=== PATIENT | female | born 1995 | race Caucasian/White ===

== ENCOUNTER 2023-09-01 22:14 | Emergency (ER) | payer OTHER, SELFPAY ==
[2023-09-01 22:19] VITALS: BP 138/90; PULSE 70; RESP 16; TEMP 36.8; O2SAT 100
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
[2023-09-01 22:28] VITALS: BP 138/90; PULSE 70; RESP 16; TEMP 36.8; O2SAT 100
--- NOTE | 2023-09-01 22:30 | DI.RAD_ITS ---
Exam(s) XR HIP LT COMPLETE AP PELVIS EXAM: XR HIP LT COMPLETE AP PELVIS CLINICAL HISTORY: hip/groin pain. TECHNIQUE: 2D digital imaging was performed. COMPARISON: No exams were available for comparison FINDINGS: Two views. No evidence of pelvic nor hip fracture. No hip joint space narrowing. Additional lateral view of th e left hip reveals no significant findings. Bone density normal. No osseous lesions. IMPRESSION: No significant radiographic findings in the bones of the pelvis and hips. DATA REPOSITORY: RADIATION DOSE DELIVERED:
--- NOTE | 2023-09-01 23:48 | DI.VRAD_ITS ---
PROCEDURE INFORMATION: Exam: XR Left Hip Exam date and time: 09/01/2023 11:03 PM Age: 28 years old Clinical indication: Hip pain; Left hip TECHNIQUE: Imaging protocol: Radiologic exam of the left hip. Views: 2 or 3 views hip with pelvis when performed. COMPARISON: No relevant prior studies available. FINDINGS: Bones/joints: Osseous alignment is normal. No acute fracture. No significant arthritic change Soft tissues: Unremarkable. IMPRESSION: Negative left hip Dictated and Authenticated by: Vish Ruiz MD. Ordering:JERRI Verdugo MD
== END 2023-09-02 00:05 | disposition home or self-care (01) ==
PROVIDERS: Emergency Provider Emergency Medicine; PCP Nurse Practitioner
DX: R10.9 Unspecified abdominal pain (principal)
CPT/HCPCS: 99283; 73502

== ENCOUNTER 2024-03-04 01:17 | Outpatient (CLI) | payer OTHER, SELFPAY ==
--- NOTE | 2024-03-04 | DI.MRI_ITS ---
Exam(s) MR LOWER JOINT LT WO EXAM: MR LOWER JOINT LT WO CLINICAL HISTORY: LOWER ABD PAIN R10.30 ADDUCTOR STRAIN TECHNIQUE: Multiplanar multisequence MRI of the hip was performed. COMPARISON: No exams were available for comparison FINDINGS: MARROW:There is no evidence of fracture, bone contusion, nor avascular necrosis. There are no signif icant osseous lesions.There is no significant osseous excrescence at the femoral head-neck junction t o suggest the presence of cam-type LUKE. HIP JOINT SPACE: There is no significant size hip joint effusion. There is no abnormal synovial thic kening nor loose intra-articular bodies. No obvious chondral defects.There is no hypertrophy of the ligamentum teres nor signal abnormality at the fovea centralis nor elsewhere in the femoral head. Th ere are no degenerative subarticular cysts on either side of the joint.. BURSAE: There is no evidence of trochanteric bursitis. There is no evidence of iliopsoas bursitis. LABRUM: There is no evidence of obvious labral tear nor evidence of paralabral cyst. TENDONS: There is very mild signal abnormality adjacent to the outer aspect of the greater trochanter in the region of the tendon of the gluteus medius insertion. Possibly mild tendinitis. This is onl y evident on the smaller field of view coronal sequence. There is no signal abnormality evident within the other muscle groups around the hip, including the a dductor group in the medial compartment, as per request. There is no signal abnormality in the adduc tor kathy as well as the adductor longus and brevis. Also no evidence of abnormal edema nor fluid s ignal within the intermuscular planes. ISCHIAL TUBEROSITY/HAMSTRING: There is no abnormal intraosseous signal in the ipsilateral ischial tub erosity nor tear of the common hamstrings tendon attachment site at this level. OTHER: There is no abnormal intramuscular signal within the quadratus femoris to suggest the presence of impingement syndrome at this level. IMPRESSION: 1. Minimal findings. No abnormal findings in the adductor group. Minimal increased signal noted at the insertional aspect of the gluteus medius on the greater trochanter. 2. No abnormal marrow signal to suggest stress fracture, degenerative changes, nor avascular necrosis . No joint effusion. 3. No evidence of obvious labral tear on this non arthrogram study. There is no evidence of paralabr al cyst. DATA REPOSITORY:
--- OUTSIDE RECORDS SUMMARY | 2024-03-04 01:26 | XMS_ITS | Encounter Summary ---
Author Organization [facility] Address [address] [place] [address] Care Team Providers Care Supervisor Dumping Name Role Phone Carolynn Claudio MD Primary Care Provider [phone] Reason for Visit * Reason Comments Cyst Encounter Details Date Type Department Care Team ([facility] st Contact Info) Description 05/01/2019 1:22 PM EST - 05/01/2019 2:30 PM EST Emergency [facility] Emergency Department [address] [place] [phone] Akanksha Ricci MD [address] [place] [phone] Discharge Disposition: Home or Self Care Social History Tobacco Use Types Packs/Day Years Used Date Smoking Tobacco: Never Smokeless Tobacco: Never Alcohol Use Standard Drinks/Week Comments Yes 0 (1 standard drink = 0.6 oz pur e alcohol) Substance Use Types Use/Week Comments Never Comments Unknown Sex and Gender Information Value Date Recorded Sex Assigned at Not on file Legal Sex Female 11:00 AM EDT Gender Identity Not on file Sexual Orientation Not on file documented as of this encounter Last Filed Vital Signs Vital Sign Reading Time Taken Comments Blood Pressure 128/88 05/01/2019 12:55 PM EST Pulse 71 05/01/2019 12:55 PM EST Temperature 37.4 ??C (99.3 ??F) 05/01/2019 12:[address] Respiratory Rate 16 05/01/2019 12:55 PM EST Oxygen Saturation 100% 05/01/2019 12:55 PM EST Inhaled Oxygen Concentration 100% 05/01/2019 1 2:55 PM EST Weight 63.5 kg (140 lb) 05/01/2019 12:55 PM EST Height 160 cm (5' 3) 05/01/2019 12:55 PM EST Body Mass Index 24.8 05/01/2019 12:55 PM EST documented in this encounter Discharge Instructions * Discharge Instructions* Akanksha Ricci MD - 05/01/2019 2:19 PM EST Your abscess is already started to drain spontaneously before you came there is no fluid collectionseen that we need to drain today You will be started on antibiotic called doxycycline 100 mg twice a day for a week, wash your skin with dilute Hibiclens which you can buy at the drugstore for the next week It is also called chlorhexidine documented in this encounter Medications at Time of Discharge doxycycline 100 MG Cap Take 1 Cap (100 mg total) by mouth 2 times daily for 7 days 14 Cap 05/01/2019 05/08/2019 documented as of this encounter ED Notes * Akanksha Ricci MD - 05/01/2019 2:30 PM EST History Chief Complaint Patient presents with ??? Cyst Chief Complaint: Question pilonidal cyst HPI This is a 23 y.o. female who presents with lump and bulging cyst near her rectum which she has feltover the last 2 days and noticed some bleeding from it today. She was told by her PCP that she has a pilonidal cyst but has never required incision and drainage. She denies fever or chills. She denies any previous history of MRSA. She is otherwise in excellent health. History reviewed. No pertinent past medical history. History reviewed. No pertinent surgical history. No family history on file. Social History Tobacco Use ??? Smoking status: Never Smoker ??? Smokeless tobacco: Never Used Substance Use Topics ??? Alcohol use: Yes ??? Drug use: Never Review of Systems Constitutional: Negative for chills and fever. Skin: Positive for wound. Physical Exam BP 128/88 (Patient Position: Sitting) Pulse 71 Temp 37.4 ??C (99.3 ??F) (Tympanic) Resp 16 Ht 1.6 m (5' 3) Wt 63.5 kg (140 lb) SpO2 100% BMI 24.80 kg/m?? Physical Exam Vitals signs and nursing note reviewed. Constitutional: Comments: Awake and alert no acute distress HENT: Head: Normocephalic. Mouth/Throat: Mouth: Mucous membranes are moist. Skin: Comments: Examination of the perirectal area reveals a wound at about 2:00 with some dried blood the area was tender but not acutely fluctuant there was a small amount of serosanguineous area draining from this area from a open wound measuring about 3 mm, there is no evidence of pilonidal cyst or any lesions or abscesses in the midline Neurological: Mental Status: She is alert. Procedures Portal bedside ultrasound did not show any evidence of a fluid collection at the site of this draining wound Pertinent Diagnostic study results include: MDM (ED Course and Disposition) ASSESMENT and PLAN This is a 23 y.o. female who presents with perirectal abscess which is spontaneously drained there is no obvious fluctuance or fluid collection at this time. Patient will be started on 7-day course of doxycycline. I did discuss with her that this possibly could represent a recurrent MRSA infection as she has had this before. She will shower with Hibiclens for the next week Encounter Diagnosis Name Primary? Perirectal abscess Yes MDM: : Refer to text in Assessment and Plan ED CRITICAL CARE: Critical Care: No Akanksha Ricci MD 05/01/19 1950 * Paulette Leos RN - 05/01/2019 12:54 PM EST Pt c/o lump at anus Has had in past no surgery 5 days ago started getting bigger Today is bleeding . documented in this encounter Plan of Treatment Not on file documented as of this encounter Visit Diagnoses Diagnosis Perirectal abscess- Primary Abscess of anal and rectal regions documented in this encounter Care Teams Supervisor Dumping Relationship Specialty Start Date End Date Carolynn Claudio MD [address] [place] [id number] PCP - General Internal Medicine 10/20/18 documented as of this encounter
--- OUTSIDE RECORDS SUMMARY | 2024-03-04 01:26 | XMS_ITS | Encounter Summary ---
Author Organization [facility] Address [address] [place] [id number] Care Team Providers Care Button Cutting Machine Operator Name Role Phone Unknown, Provider Primary Care Provider Radha martines Encounter Details Date Type Department Care Team (Late st Contact Info) Description 03/28/2009 Orders Only [facility] Laboratory Services - [facility] ([facility]) [address] [place] [address], [place] [id number] Adrien Sweeney MD [address] [place] [id number] Social History Tobacco Use Types Packs/Day Years Used Date Smoking Tobacco: Never Assessed Sex and Gender Information Value Date Recorded Sex Assigned at Not on file Gender Identity Not on file Sexual Orientation Not on file documented as of this encounter Plan of Treatment Not on file documented as of this encounter Procedures Procedure Name Priority Date/Time Associated Diagnosis Comments SURGICAL PATHOLOGY Routine 03/28/2009 0:00 EST documented in this encounter Results * SURGICAL PATHOLOGY (03/28/2009 0:00 EST) Pathology Report: SURGICAL PATHOLOGY REPORT ? Reports generated via electronic interface contain original data; ? however they are lacking the format of the original report. ? Caution should be taken when reading/interpreti ng unformatted reports. ? Name: ? LONDON, DOREEN M ? Accession #: ? [id number] ? : ? 1995 (Age: 13) ??F ? Collect Date: ? 03/28/2009 ? Location: ? [facility] ? Receive Date: ? 03/28/2009 ? Provider: ADRIEN ARGENIS MD ? Copy to: YADIRA BC MD ? Final Pathologic Diagnosis: ? A. ?Turbinate, right, excisional biopsy: ? 1. ?Turbinate tissue with chronic inflammation and reactive changes. ? B. ?? Turbinate, left, excisional biopsy: ? 1. ?Turbinate tissue with chronic inflammation and reactive changes. ? Document reviewed and electronically signed by: ? Taisha Mendieta, MD ? Report ??Date: 04/03/2009 09:51 ? By the signature above, the attending physician certifies that he/she has ? personally conducted a gross and/or microscopic examination of the described ? specimens and rendered or confirmed the above diagnosis. ? Specimen(s) Received: ? A. ?Right turbinate ? B. ? Left turbinate ? Clinical History: ? Obstructive bilat inf turb hypertrophy ? Gross Description: ? Received in formalin labelled London, Doreen and right turbinate is a ?? meadows-pink, smooth to wrinkled, unoriented, 3.0 x 0.6 x 0.5 cm portion of mucosa ?? with underlying georges-white, cartilaginous material. ??No definitive nodule is ? identified. ??The specimen is longitudinally bisected and entirely submitted as ?? (A). ? Received in formalin labelled London, Doreen and left turbinate is a ? meadows-pink, ovoid, unoriented portion of mucosa measuring 2.7 x 0.6 x 0.5 cm and ?? has underlying, georges-white, cartilaginous material. ??No discrete nodule is ? present. ??The specimen is longitudinally bisected and entirely submitted as (B). ([facility])/[facility] ? End of Report ? [facility] 03/28/2009 03/28/2009 19: 49 EST Adrien Lillian MD PATHOLOGY ORDERABLES [facility] [address] [place] [id number] documented in this encounter Visit Diagnoses Not on filedocumented in this encounter Care Teams Button Cutting Machine Operator Relationship Specialty Start Date End Date Unknown, Provider, PCP - General 03/28/09 documented as of this encounter
--- OUTSIDE RECORDS SUMMARY | 2024-03-04 01:26 | XMS_ITS | Encounter Summary ---
Author Organization [facility] Address [facility] [address] [place] [address] Care Team Providers Care Head Porter Baggage Name Role Phone Roxanne Membreno MD Primary Care Provider [phone] Reason for Visit * Reason Onset Date Comments Medication Refill 03/04/2023 Encounter Details Date Type Department Care Team (Late st Contact Info) Description 03/04/2023 Refill Dermatology at [facility] [address] [place] [phone] Stuart Hickman MD [facility] [address] [place] [address] Hidradenitis suppurativa Social History Tobacco Use Types Packs/Day Years Used Date Smoking Tobacco: Never Assessed Sex and Gender Information Value Date Recorded Sex Assigned at Not on file Gender Identity Not on file Sexual Orientation Not on file documented as of this encounter Miscellaneous Notes * Telephone Encounter - Brittani Casillas LPN - 03/04/2023 1:08 PM EDT Pharmacy change documented in this encounter Plan of Treatment Not on file documented as of this encounter Visit Diagnoses Diagnosis Hidradenitis suppurativa Hidradenitis documented in this encounter Care Teams Head Porter Baggage Relationship Specialty Start Date End Date Roxanne Membreno MD [address] [place] [phone] PCP - General Family Medicine 03/05/21 documented as of this encounter
--- OUTSIDE RECORDS SUMMARY | 2024-03-04 01:26 | XMS_ITS | Clinical Summary ---
Author Organization [facility] Address [address] [place] [address] Care Team Providers Care Jewelry Store Manager Name Role Phone Carolynn Claudio MD Primary Care Provider [phone] Allergies No known active allergies Medications No known medications Social History Tobacco Use Types Packs/Day Years [...] on file Sexual Orientation Not on file Last Filed Vital Signs Vital Sign Reading [...] Mass Index 24.8 05/01/2019 12:55 PM EST Plan of Treatment Not on file Care Teams Jewelry Store Manager Relationship Specialty Start Date End Date Carolynn Claudio MD [address] [place] [address] PCP - General Internal Medicine 10/20/18
--- OUTSIDE RECORDS SUMMARY | 2024-03-04 01:26 | XMS_ITS | Clinical Summary ---
Author Organization [facility] Address [facility] [place] [address] Care Team Providers Care Electrician Crane Maintenance Name Role Phone Roxanne Membreno MD Primary Care Provider [phone] Allergies No known active allergies Medications Medication Sig Dispensed Refills Start Date End Date Status norgestimate-ethinyl estradiol (TRI-SPRINTEC, 28,) 0.18/0.215/0.25 mg-35 mcg (28) tablet 10/22/2009 Active CHOLECALCIFEROL, VITAMIN D3, (VITAMIN D-3 ORAL) 10/22/2009 Active multivitamin (THERAGRAN) tablet 10/22/2009 Active escitalopram (LEXAPRO) 10 mg tablet 10/22/2009 Active clindamycin (CLINDAGEL) 1 % Gel APPLY TOPICALLY TO THE AFFECTED AREA TWICE DAILY 01/08/2021 Active Kurvelo, 28, 0.15-0.03 mg Tablet TAKE 1 TABLET BY MOUTH EVERY DAY 02/22/2021 Active traZODone (Desyrel) 50 mg Tablet TAKE 1 TO 2 TABLETS BY MOUTH AT BEDTIME 02/28/2021 Active zolpidem (Ambien) 5 mg Tablet TAKE 1 TABLET BY MOUTH AT BEDTIME NEEDED 02/28/2021 Active spironolactone (Aldactone) 50 mg tabletIndications:Hi dradenitis suppurativa Take 1 tablet by mouth daily. Ok to increase to 2 pills daily if tolerated 90 tablet 3 03/04/2023 Active Active Problems No known active problems Social History Tobacco Use Types Packs/Day Years Used Date Smoking Tobacco: Never Assessed Sex and Gender Information Value Date Recorded Sex Assigned at Not on file Gender Identity Not on file Sexual Orientation Not on file Plan of Treatment Health Maintenance Due Date Last Done Comments HIV screen 07/21/2011 Hepatitis C Screening 07/21/2011 Hepatitis B vaccine (0-59 yrs) (1) 2012 Tetanus/Diphtheria/Pertussis Vaccines (1 - Tdap) 07/20 HPV test 07/21/2023 PAP Smear 07/21/2023 Covid-19 Vaccine (1 - season) 2024 Influenza (Flu) vaccine (1 o f 1 - Influenza standard series) 01/03/2024 Care Teams Electrician Crane Maintenance Relationship Specialty Start Date End Date Roxanne Membreno MD [address] [place] [phone] PCP - General Family Medicine 03/05/21
--- OUTSIDE RECORDS SUMMARY | 2024-03-04 01:26 | XMS_ITS | Encounter Summary ---
[facility] Organization [facility] Address [facility] [place] [address] Care Team Providers Care Trolley Worker Name Role Phone Rxoanne Membreno MD Primary Care Provider [phone] Reason for Visit * Consultation (Routine) - Closed Specialty Diagnoses / Procedures Referred By Contac t Referred To Contact Dermatology Diagnoses Hidradenitis suppurativa Procedures Hidradenitis suppurativa Pascual Reyna MD [address] [place] [address] [facility] Dermatology [address] [place] [address] Referral ID Status Reason Start Date Expiration Date Visits Re quested Visits Authorized [id number] Closed 01/22/2021 01/22/2022 1 1 Encounter Details Date Type Department Care Team (Late st Contact Info) Description 03/05/2021 1:40 PM EDT Office Visit Dermatology at [facility] [address] [place] [address] Veronica Campbell MD [facility] [address] [place] [address] Hidradenitis suppurativa Social History Tobacco Use Types Packs/Day Years Used Date Smoking Tobacco: Never Assessed Sex and Gender Information Value Date Recorded Sex Assigned at Not on file Gender Identity Not on file Sexual Orientation Not on file documented as of this encounter Progress Notes * Veronica Campbell - 03/05/2021 1:40 PM EDT Images from the original note were not included. DEPARTMENT OF DERMATOLOGY Medical Dermatology Clinic Note Provider: Veronica Campbell MD Patient's preferred name Doreen Preferred contact method for results [x]Phone: Cell []myD-H []Letter Detailed phone message OK? Yes Are there any other people with whom we may discuss your care? Amy London (mother) Past Medical History Date, location, treatment Melanoma N Dysplastic nevi N SCC N BCC N AKs N Other relevant past medical history N Family History Details Melanoma N NMSC N Other relevant family history N Social History Occupation: Clinical Physical Therapy Aid Hobbies: [employer], [employer] Other: single Pre-Procedure Questions Details Allergy to lidocaine, epinephrine, Dermabond, chlorhexidine, or adhesives N Bleeding disorder or blood thinners N Implanted devices (Pacemaker, defibrillator, deep brain stimulator, cochlear implant) N History of Present Illness: Doreen London is a 25 y.o. Patient is referred to the clinic at the request of Pascual Reyna for HS, she was given clindamycin topical and doxycyline , she notes that she had to stop the doxycyline because of GI side effects, she continues to use the clindamycin topical after showering, it has been coming and going since Spring 2018, they have been mostly in the genital area, she would go to the ER every time and they gave her oral antibiotics which helped, she uses Dial or Dove sensitive skin liquid soap in the shower, she tends to break out more when sheis stressed and worsens with sweat, he most recent lesion was on the left labia, but she does not have anything active today. - she notes that she has been breaking out with hives on her skin,she stopped taking ZZquil to fallasleep and notes that now she is getting hives at night, she has not tried to treat with anything as she is trying to stay away from anything related to benadryl Review of Systems: General: Feeling well. Skin: No other skin concerns. Medications: Reviewed in eD-H Allergies: Reviewed in eD-H Skin Examination: Focused skin examination of the groin, including genitals, axillae, back was normal with the exception of the findings below. 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 It is thought that follicular occlusion leads to trapping offollicular contents, rupture, and inflammation of the dermis, with bacterial superinfection in somecases. - discussed treatment options with patient including topical antibiotics, antibiotic washes, spironolactone, oral antibiotics Plan: - Instruct patients to avoid tight-fitting clothing and excessive friction to the involved areas. - continue Rx: Clindamycin gel 1% BID to affected area - start OTC Benzoyl Peroxide wash - apply to the affected areas and let sit 3-5 minutes prior to rinsing - start Rx: Spironolactone start at 50mg daily; ok to increase to 100mg daily if tolerated -Common side effects discussed with pt including menstrual irregularities, breast tenderness, minorgastrointestinal symptoms & orthostatic hypotension. No personal hx of Breast Cancer. Taking OCPs - recommended that she call and return to clinic when flaring for further evaluation Other: ??? N/A RTC: 3 months for follow up of HS []Note routed to workers compensation legal secretary []Recall placed in scheduling system [x]Appointment scheduled at checkout Scribe attestation: Kasia Montague [facility] has performed the documentation for this encounter in the presence of and acting as a scribe for Veronica Campbell MD. I performed the above scribed service and agree with the accuracy of the documentation in this encounter. Reviewed and signed by: Veronica Campbell MD Dermatology [facility] Patient seen and evaluated with staff assistant health educator: Alize Iglesias MD Department of Dermatology [facility] * Alize Iglesias MD - 03/05/2021 1:40 PM EDT I directly supervised Dr. Campbell during this office visit. Dr. Campbell presented the history and physical exam to me. I then saw and examined this patient with Dr. Campbell . We reviewed the history andpertinent details and I confirmed the physical findings. I agree with the details of the history and physical exam as documented in Dr. Campbells note. ALIZE IGLESIAS MD Staff Physician documented in this encounter Plan of Treatment Not on file documented as of this encounter Visit Diagnoses Diagnosis Hidradenitis suppurativa Hidradenitis documented in this encounter Care Teams Trolley Worker Relationship Specialty Start Date End Date Roxanne Membreno MD [address] [place] [phone] PCP - General Family Medicine 03/05/21 documented as of this encounter
--- OUTSIDE RECORDS SUMMARY | 2024-03-04 01:26 | XMS_ITS | Encounter Summary ---
Author Organization [facility] [place] [address] Care Team Providers Care Financial Aids Officer Name Role Phone Roxanne Membreno MD Primary Care Provider [phone] Encounter Details Date Type Department Care Team (Latest Contact Info) Description 06/23/2022 4:20 PM EST TH Visit (TeleHealth) Dermatology at [facility] [address] [place] [address] Stuart Hickman MD [facility] DR [address] [place] [address] Hidradenitis suppurativa Social History Tobacco Use Types Packs/Day Years Used Date Smoking Tobacco: Never Assessed Sex and Gender Information Value Date Recorded Sex Assigned at Not on file Gender Identity Not on file Sexual Orientation Not on file documented as of this encounter Progress Notes * Stuart Hickman MD - 06/23/2022 4:20 PM EST Images from the original note were not included. DEPARTMENT OF DERMATOLOGY Medical Dermatology Clinic Provider: Stuart Hickman MD Patient's preferred name Doreen Preferred contact method for results [x]??Phone: Cell??[]??myD-H []??Letter Detailed phone message OK? Yes Are there any other people with whom we may discuss your care? Amy London (mother) ?? 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 Pre-Procedure Questions Details Allergy to lidocaine, epinephrine, Dermabond, chlorhexidine, or adhesives N Bleeding disorder or blood thinners N Implanted devices (Pacemaker, defibrillator, deep brain stimulator, cochlear implant) N History of Present Illness: Doreen London is a 26 y.o. Patient returns to clinic today for a follow up of HS. She states that her skin is doing well. She states that she is continuing with Rx Spironolactone and OTC Hibiclen, she stats that she hasn't used Rx Clindamycin gel in a while. She statesthat she is continuing Rx Spironolactone 50mg daily. She states that she is continuing to do well, she denies having any questions or concerns. Last visit at Dermatology: 12/25/2021 Last visit with this provider: Visit date not found Medications: Reviewed in eD-H Allergies: Reviewed in eD-H Skin Examination: TeleHealth examination: Skin exam of the face was performed via TeleHealth. Patient is aware that assessment may be limited by the TeleHealth video resolution. Assessment/Plan #??Hidradenitis??Suppurativa, Mild??- Clear today per pt. No recent flares - patient d/c Clindamycin??gel??1%??as she did not feel she needed it. No flares since d/c. May consider restarting in future if needed - Continue OTC Hibiclens wash??- apply to the affected areas and let sit 3-5 minutes prior to rinsing - Continue??Rx: Spironolactone start at 50mg daily;??ok to increase to 100mg daily if tolerated. Recommend if increasing, take prior to bedtime due to potential side effects of dizziness, as pt did not tolerate dose increase during her waking hours - Common side effects discussed with pt including menstrual irregularities, breast tenderness, minor gastrointestinal symptoms & orthostatic hypotension.??No personal hx of Breast Cancer. - Pt on OCPs, continue Other: ??? N/A RTC: 1 yr for med refill for HS or PRN []Note routed to career technology teacher [x]Recall placed in scheduling system []Appointment scheduled at checkout Scribe attestation: Bere Aparicio [facility] has performed the documentation for this encounter in thepresence of and acting as a scribe for Stuart Hickman MD. I performed the above scribed service and agree with the accuracy of the documentation in this encounter. Reviewed and signed by: Stuart Hickman MD Dermatology [facility] staff airport operations manager: Taylor Vitale MD Dermatology [facility] * Taylor Vitale MD - 06/23/2022 4:20 PM EST I was the attending physician supervising the resident in the above care. For the purposes of billing, the resident provided the care. documented in this encounter Plan of Treatment Not on file documented as of this encounter Visit Diagnoses Diagnosis Hidradenitis suppurativa Hidradenitis documented in this encounter Care Teams Financial Aids Officer Relationship Specialty Start Date End Date Roxanne Membreno MD [address] [place] [phone] PCP - General Family Medicine 03/05/21 documented as of this encounter
--- OUTSIDE RECORDS SUMMARY | 2024-03-04 01:26 | XMS_ITS | Referral Summary ---
Author Organization [facility] Address [address] [place] [address] Care Team Providers Care Liquid Yeast Supervisor Name Role Phone Carolynn Claudio MD Primary Care Provider [phone] Allergies No known active allergies Medications No [...] of Treatment Not on file Care Teams Liquid Yeast Supervisor Relationship Specialty Start Date End Date Carolynn Claudio MD [address] [place] [address] PCP - General Internal Medicine 10/20/18
--- OUTSIDE RECORDS SUMMARY | 2024-03-04 01:26 | XMS_ITS | Clinical Summary ---
Author Organization [facility] Address [address] [place] [address] Care Team Providers Care Lead Manufacturing Technician Name Role Phone Unknown, Provider Primary Care Provider Unava ilable Social History Tobacco Use Types Packs/Day Years Used Date Smoking Tobacco: Never Assessed Sex and Gender Information Value Date Recorded Sex Assigned at Not on file Gender Identity Not on file Sexual Orientation Not on file Plan of Treatment Health Maintenance Due Date Last Done Comments Hepatitis C Screen 1993 Hepatitis B Vaccine (1 of 3 - 19+ 3-dose series) 07/20 COVID-19 Vaccine ( season) 2023 Care Teams Lead Manufacturing Technician Relationship Specialty Start Date End Date Unknown, Provider, PCP - General 03/28/09
--- OUTSIDE RECORDS SUMMARY | 2024-03-04 01:26 | XMS_ITS | Encounter Summary ---
Author Organization [facility] [place] [address] Care Team Providers Care Faceter Name Role Phone Roxanne Membreno MD Primary Care Provider [phone] Encounter Details Date Type Department Care Team (Late st Contact Info) Description 12/25/2021 8:00 AM EDT TH Visit (TeleHealth) Dermatology at [facility] [address] [place] [address] Lorenza Urias MD [facility] DR [address] [place] [address] Hidradenitis suppurativa Social History Tobacco Use Types Packs/Day Years Used Date Smoking Tobacco: Never Assessed Sex and Gender Information Value Date Recorded Sex Assigned at Not on file Gender Identity Not on file Sexual Orientation Not on file documented as of this encounter Progress Notes * Lorenza Urias MD - 12/25/2021 8:00 AM EDT Images from the original note were not included. DEPARTMENT OF DERMATOLOGY Medical Dermatology Clinic Provider: Lorenza Urias MD Patient's preferred name Doreen Preferred contact method for results [x]?Phone: Cell []?myD-H []?Letter Detailed phone message OK? Yes Are there any other people with whom we may discuss your care? Amy London (mother) ?? 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 Pre-Procedure Questions Details Allergy to lidocaine, epinephrine, Dermabond, chlorhexidine, or adhesives N Bleeding disorder or blood thinners N Implanted devices (Pacemaker, defibrillator, deep brain stimulator, cochlear implant) N History of Present Illness: Doreen London is a 26 y.o. year old. Patient returns to clinic today for evaluation of acne & HS follow up. Patient reports that her HS has been good. Patient also reports she has felt a ouple flare ups come on but was tristan to us topical Rx Clindamycin that helped keep it at bay. Patient report she did try to up the dose of Rx Spirolactone but started to not feelgood so patient has continued at 50mg. Last visit at [facility] Derm: 06/03/2021 Last visit with this provider: 06/03/2021 Medications: Reviewed in eD-H Allergies: Reviewed in eD-H Skin Examination: Deferred due to telehealth visit Assessment/Plan # Hidradenitis Suppurativa, Mild - Clear today per pt - continue Rx: Clindamycin gel 1% BID to affected area - Continue OTC Hibiclens wash - apply to the affected areas and let sit 3-5 minutes prior to rinsing - Continue Rx: Spironolactone start at 50mg daily; ok to increase to 100mg daily if tolerated. Recommend if increasing, take prior to bedtime due to potential side effects of dizziness, as pt did nottolerate dose increase during her waking hours -Common side effects discussed with pt including menstrual irregularities, breast tenderness, minorgastrointestinal symptoms & orthostatic hypotension. No personal hx of Breast Cancer. - Pt on OCPs RTC: 6 months for HS f/u [x]Note routed to board of education secretary []Recall has been placed in scheduling system []Appointment scheduled at checkout Scribe attestation: Note initiated by Keiko GONZALEZ I performed the above scribed service and agree with the accuracy of the documentation in this encounter. Reviewed and signed by: Lorenza Urias MD Dermatology [facility] Staff milieu technician: Nathalie Mckeon MD Dermatology [facility] * Nathalie Mckeon MD - 12/25/2021 8:00 AM EDT I was the supervising physician working with dermatology resident Dr. Urias in the dermatology clinic during this patient visit. The level of resident supervision for this patient visit was indirect supervision with direct supervision immediately available. (definition: [facility] GME Policy Statementon Graduate Medical Education, Supervision of Graduate Medical Trainees) I was immediately available to Dr. Urias for questions and discussion regarding this visit. I have reviewed the encounter note details and level of service. NATHALIE MCKEON MD Staff Physician documented in this encounter Plan of Treatment Not on file documented as of this encounter Visit Diagnoses Diagnosis Hidradenitis suppurativa Hidradenitis documented in this encounter Care Teams Faceter Relationship Specialty Start Date End Date Roxanne Membreno MD [address] [place] [phone] PCP - General Family Medicine 03/05/21 documented as of this encounter
--- OUTSIDE RECORDS SUMMARY | 2024-03-04 01:26 | XMS_ITS | Encounter Summary ---
Author Organization [facility] Address [address] [place] [address] Care Team Providers Care Plodder Operator Name Role Phone Unknown, Provider Primary Care Provider Radha iljanette Encounter Details Date Type Department Care Team (Late st Contact Info) Description 06/10/2022 Lab Requisition [facility] Pathology & Laboratory Medicine - [address] [address] Outr Resulting Lab, Provider Social History Tobacco Use Types Packs/Day Years Used Date Smoking Tobacco: Never Assessed Sex and Gender Information Value Date Recorded Sex Assigned at Not on file Gender Identity Not on file Sexual Orientation Not on file documented as of this encounter Plan of Treatment Not on file documented as of this encounter Procedures Procedure Name Priority Date/Time Associated Diagnosis Comments QUANTIFERON MITOGEN (PERFORMABLE) Today 06/09/2022 10:47 EST QUANTIFERON TB2 (PERFORMABLE) Today 06/09/2022 10:47 EST QUANTIFERON TB1 (PERFORMABLE) Today 06/09/2022 10:47 EST QUANTIFERON NIL (PERFORMABLE) Today 06/09/2022 10:47 EST QUANTIFERON INTERPRETATION (PERFORMABLE) Today 06/09/2022 10:47 EST QUANTIFERON TB GOLD PLUS Routine 06/09/2022 10:47 EST documented in this encounter Results * QUANTIFERON INTERPRETATION (PERFORMABLE) (06/09/2022 10:47 EST) Quantiferon Interpretation Negative Negative 06/11/2022 11:12 EST [facility] Comment:No interferon-gamma response to M. tuberculosis antigens was detected. ??Infection with M. tuberculosis is unlikely. A single negative result does not exclude infection with M. tuberculosis. ??In patients at high risk for M. tuberculosis infection, a second test should be considered. TB1 Ag minus Nil 0.00 IU/ml 06/11/19 11:12 EST [facility] TB2 Ag minus Nil 0.00 IU/mL 06/11/19 11:12 EST [facility] Blood VENOUS BLOOD / Unknown 06/09/2022 10:47 EST 06/11/2022 11:09 EST Narrative [facility] - 06/11/2022 11:12 EST Results were obtained with the [employer] QuantiFERON-TB Gold Plus CLIA. New platform in use 01/09/2021 Provider Outr Resulting Lab IMMUNOLOGY A ND SEROLOGY ORDERABLES Performing Organization Address [facility] Co de Phone Number [facility] [address] [place] [address] * QUANTIFERON MITOGEN (PERFORMABLE) (06/09/2022 10:47 EST) Blood VENOUS BLOOD / Unknown 06/09/2022 10:47 EST 06/10/2022 17:07 EST Provider Outr Resulting Lab IMMUNOLOGY A ND SEROLOGY ORDERABLES Performing Organization Address City/[facility]/ZIP Co de Phone Number [facility] [address] [place] [address] * QUANTIFERON TB2 (PERFORMABLE) (06/09/2022 10:47 EST) Blood VENOUS BLOOD / Unknown 06/09/2022 10:47 EST 06/10/2022 17:07 EST Provider Outr Resulting Lab IMMUNOLOGY A ND SEROLOGY ORDERABLES Performing Organization Address [facility]/ZIP Co de Phone Number [facility] [address] [place] [address] * QUANTIFERON TB1 (PERFORMABLE) (06/09/2022 10:47 EST) Blood VENOUS BLOOD / Unknown 06/09/2022 10:47 EST 06/10/2022 17:06 EST Provider Outr Resulting Lab IMMUNOLOGY A ND SEROLOGY ORDERABLES Performing Organization Address [facility] de Phone Number [facility] [address] [place] [address] * QUANTIFERON NIL (PERFORMABLE) (06/09/2022 10:47 EST) Blood VENOUS BLOOD / Unknown 06/09/2022 10:47 EST 06/10/2022 17:06 EST Provider Outr Resulting Lab IMMUNOLOGY A ND SEROLOGY ORDERABLES Performing Organization Address [facility] Co de Phone Number [facility] [address] [place] [address] documented in this encounter Visit Diagnoses Not on filedocumented in this encounter Care Teams Plodder Operator Relationship Specialty Start Date End Date Unknown, Provider, PCP - General 03/28/09 documented as of this encounter
--- OUTSIDE RECORDS SUMMARY | 2024-03-04 01:26 | XMS_ITS | Encounter Summary ---
Author Organization [facility] Address [facility] [place] [address] Care Team Providers Care Branding Machine Tender Name Role Phone Roxanne Membreno MD Primary Care Provider [phone] Encounter Details Date Type Department Care Team (Late st Contact Info) Description 03/02/2023 Telephone Dermatology at [facility] [address] [place] [phone] Stuart Hickman MD [facility] [address] [place] [address] Social History Tobacco Use Types Packs/Day Years Used Date Smoking Tobacco: Never Assessed Sex and Gender Information Value Date Recorded Sex Assigned at Not on file Gender Identity Not on file Sexual Orientation Not on file documented as of this encounter Miscellaneous Notes * Telephone Encounter - Cassi Andrade - 03/02/2023 10:54 AM EDT Doreen London called to request a refill of thespironolactone (Aldactone) 50 mg tablet please be sent to [facility]. documented in this encounter Plan of Treatment Not on file documented as of this encounter Visit Diagnoses Not on filedocumented in this encounter Care Teams Branding Machine Tender Relationship Specialty Start Date End Date Roxanne Membreno MD [address] [place] [phone] PCP - General Family Medicine 03/05/21 documented as of this encounter
--- OUTSIDE RECORDS SUMMARY | 2024-03-04 01:26 | XMS_ITS | Encounter Summary ---
Author Organization Formerly [facility] Address [facility] [place] [address] Care Team Providers Care Branch Manager Name Role Phone Roxanne Membreno MD Primary Care Provider [phone] Encounter Details Date Type Department Care Team (Late st Contact Info) Description 03/04/2023 Telephone Dermatology at [facility] [address] [place] [address] Stuart Hickman MD [facility] [address] [place] [address] Social History Tobacco Use Types Packs/Day Years Used Date Smoking Tobacco: Never Assessed Sex and Gender Information Value Date Recorded Sex Assigned at Not on file Gender Identity Not on file Sexual Orientation Not on file documented as of this encounter Miscellaneous Notes * Telephone Encounter - Cassi Andrade - 03/04/2023 10:49 AM EDT Doreen London called to request the prescription please be sent to [facility]. documented in this encounter Plan of Treatment Not on file documented as of this encounter Visit Diagnoses Not on filedocumented in this encounter Care Teams Branch Manager Relationship Specialty Start Date End Date Roxanne Membreno MD [address] [place] [phone] PCP - General Family Medicine 03/05/21 documented as of this encounter
--- OUTSIDE RECORDS SUMMARY | 2024-03-04 01:26 | XMS_ITS | Encounter Summary ---
Author Organization [facility] Address [facility] [place] [address] Care Team Providers Care Child Care Nurse Name Role Phone Roxanne Membreno MD Primary Care Provider Encounter Details Date Type Department Care Team (Late st Contact Info) Description 12/25/2022 Telephone Dermatology at [facility] [address] [place] [phone] Stuart Hickman MD [facility] [address] [place] [address] Social History Tobacco Use Types Packs/Day Years Used Date Smoking Tobacco: Never Assessed Sex and Gender Information Value Date Recorded Sex Assigned at Not on file Gender Identity Not on file Sexual Orientation Not on file documented as of this encounter Miscellaneous Notes * Telephone Encounter - Yancy Bowen - 12/25/2022 1:33 PM EDT Medication Request Who requested: Doreen London Medication(s): spironolactone (ALDACTONE) 50 mg Tablet Pharmacy: [facility] Last seen: 06/23/22 Follow up scheduled for: Visit date not found Comments: Patient would like to change the pharmacy is using. She is no longer using [facility]. Please send to above pharmacy Patient is aware it make take medical team up to three business days to process refill requests. Please ask pharmacy to contact patient when medication is available for filler picker. If unable to refill medication please contact patient. Patient contact: [phone] documented in this encounter Plan of Treatment Not on file documented as of this encounter Visit Diagnoses Not on filedocumented in this encounter Care Teams Child Care Nurse Relationship Specialty Start Date End Date Roxanne Membreno MD [address] [place] [address] PCP - General Family Medicine 03/05/21 documented as of this encounter
--- OUTSIDE RECORDS SUMMARY | 2024-03-04 01:26 | XMS_ITS | Referral Summary ---
Author Organization [facility] Address [address] [place] [address] Care Team Providers Care Floor Renovator Name Role Phone Unknown, Provider Primary Care Provider Unava ilable Social History Tobacco Use Types Packs/Day Years Used Date Smoking Tobacco: Never Assessed Sex and Gender Information Value Date Recorded Sex Assigned at Not on file Gender Identity Not on file Sexual Orientation Not on file Plan of Treatment Not on file Care Teams Floor Renovator Relationship Specialty Start Date End Date Unknown, Provider, PCP - General 03/28/09
--- OUTSIDE RECORDS SUMMARY | 2024-03-04 01:26 | XMS_ITS | Encounter Summary ---
Author Organization [facility] Address [facility] [place] [address] Care Team Providers Care Wad Lubricator Name Role Phone Roxanne Membreno MD Primary Care Provider + [phone] Encounter Details Date Type Department Care Team (Late st Contact Info) Description 03/02/2023 Orders Only Dermatology at [facility] [address] [place] [address] Stuart Hickman MD [facility] [address] [address] Hidradenitis suppurativa Social History Tobacco Use Types [...] Hidradenitis documented in this encounter Care Teams Wad Lubricator Relationship Specialty Start Date End Date Roxanne Membreno MD [address] [place] [address] PCP - General Family Medicine 03/05/21 documented as of this encounter
--- OUTSIDE RECORDS SUMMARY | 2024-03-04 01:26 | XMS_ITS | Encounter Summary ---
Author Organization [facility] Address [facility] [place] [address] Care Team Providers Care Head Kiln Operator Name Role Phone Roxanne Membreno MD Primary Care Provider [phone] Reason for Visit * Consultation (Routine) - Closed Specialty Diagnoses / Procedures Referred By Contac t Referred To Contact Dermatology Diagnoses Hidradenitis suppurativa Roxanne Membreno MD [address] [place] [phone] [facility] [address] [place] [address] Referral ID Status Reason Start Date Expiration Date V isits Requested Visits Authorized [id number] Closed Consult, Test & Treat PCP Updated and/or Approved 05/07/2021 05/06/2022 10 10 Encounter Details Date Type Department Care Team (Late st Contact Info) Description 06/03/2021 11:20 AM EST TH Visit (TeleHealth) Dermatology at [facility] [address] [place] [phone] Lorenza Urias MD [facility] [address] [place] [address] Hidradenitis suppurativa; Acute urticaria Social History Tobacco Use Types Packs/Day Years Used Date Smoking Tobacco: Never Assessed Sex and Gender Information Value Date Recorded Sex Assigned at Not on file Gender Identity Not on file Sexual Orientation Not on file documented as of this encounter Progress Notes * Lorenza Webster MD - 06/03/2021 11:20 AM EST Images from the original note were not included. DEPARTMENT OF DERMATOLOGY Medical Dermatology [facility] Provider: Lorenza Webster MD Patient's preferred name Doreen Preferred contact [...] relevant family history N Social History Occupation: [employer] Hobbies: [employer], [employer] Other: single ?? Pre-Procedure Questions Details Allergy to lidocaine, epinephrine, Dermabond, chlorhexidine, or adhesives N Bleeding disorder or blood thinners N Implanted devices (Pacemaker, defibrillator, deep brain stimulator, cochlear implant) N History of Present Illness: Doreen London is a 25 y.o. year old. Patient returns to clinic today for evaluation of acne & HS follow up. -Reports she is doing very well in terms of HS. Currently on 50 mg spirono. Only used clinda and BPO for one minor spot that appeared and resolved with treatment in 4 days. Notes nightly hives for 4-5 weeks a couple of weeks after starting spironolactone. Resolved with cornelio and calamine lotion [facility] 03/05/2021 Last visit with this provider: Visit date not found Medications: Reviewed in eD-H Allergies: Reviewed in eD-H Skin Examination: Deferred due to telehealth visit Assessment/Plan # Hidradenitis Suppurativa, Mild - From prior visit: minimal scarring on the genitals, no active cysts noted today; axillae are clear - continue Rx: Clindamycin gel 1% BID [...] to clinic when flaring for further evaluation #. Acute Urticaria, resolved- - Discussed this could have been triggered by a variety of things and is often idiopathic - Likely not related to spironolactone although has been reported with frequency not defined - May continue OTC antihistamines as needed RTC: 6 months for HS f/u [x]Note routed to social secretary []Recall has been placed in scheduling system []Appointment scheduled at checkout Scribe attestation: Note initiated by Keiko GONZALEZ I performed the above scribed service and agree with the accuracy of the documentation in this encounter. Reviewed and signed by: Lorenza Webster MD Dermatology [facility] Patient seen and evaluated with staff cable inspector: Palmer Coppola MD Dermatology [facility] * Palmer Coppola MD - 06/03/2021 11:20 AM EST I directly supervised Dr. eWbster during this office visit. Dr. Webster presented the history and physical exam to me. I, then, saw and examined this patient with Dr. Webster. We reviewed the history and pertinent details and I confirmed the physical findings. I agree with the details of the history and physical exam as documented in Dr. Webster's note. PALMER COPPOLA MD Staff Physician documented in this encounter Plan of Treatment Not on file documented as of this encounter Visit Diagnoses Diagnosis Hidradenitis suppurativa Hidradenitis Acute urticaria Other specified urticaria documented in this encounter Care Teams Head Kiln Operator Relationship Specialty Start Date End Date Roxanne Membreno MD [address] [place] [phone] PCP - General Family Medicine 03/05/21 documented as of this encounter
--- OUTSIDE RECORDS SUMMARY | 2024-03-04 01:26 | XMS_ITS | Encounter Summary ---
Author Organization [facility] Address [facility] [place] [address] Care Team Providers Care Rn Shift Mgr Name Role Phone Roxanne Membreno MD Primary Care Provider [phone] Reason for Visit * Reason Onset Date Comments Medication Refill 12/26/2022 Encounter Details Date Type Department Care Team (Late st Contact Info) Description 12/26/2022 Refill Dermatology at [facility] [address] [place] [address] Stuart Hickman MD [facility] [address] [place] [address] Hidradenitis suppurativa Social History Tobacco Use Types Packs/Day Years Used Date Smoking Tobacco: Never Assessed Sex and Gender Information Value Date Recorded Sex Assigned at Not on file Gender Identity Not on file Sexual Orientation Not on file documented as of this encounter Miscellaneous Notes * Telephone Encounter - Brittani Casillas LPN - 12/26/2022 9:44 AM EDT Pharmacy change Medication Refill Request Order(s) pended and routed to Dr. Hickman to review and sign, if appropriate. - Medication(s) requested to refill: Spironolactone - Associated diagnosis: HS - Last visit: 06/23/2022 - Recommended follow up: 1 year - Next scheduled: Visit date not found - Special considerations: no - Appropriate to refill: yes documented in this encounter Plan of Treatment Not on file documented as of this encounter Visit Diagnoses Diagnosis Hidradenitis suppurativa Hidradenitis documented in this encounter Care Teams Rn Shift Mgr Relationship Specialty Start Date End Date Roxanne Membreno MD [address] [place] [address] PCP - General Family Medicine 03/05/21 documented as of this encounter
--- OUTSIDE RECORDS SUMMARY | 2024-03-04 01:26 | XMS_ITS | Encounter Summary ---
Author Organization [facility] Address [address] [place] [address] Care Team Providers Care Cold Molding Press Operator Name Role Phone Carolynn Claudio MD Primary Care Provider [phone] Encounter Details Date Type Department Care Team (Latest Contact Info) Description 10/20/2018 11:05 AM EDT - 10/20/2018 11:59 PM EDT Hospital Encounter [facility] [address] [place] [phone] Beto Burkett, PAC [address] [place] [phone] Discharge Disposition: Home or Self Care Social History Tobacco Use Types Packs/Day Years Used Date Smoking Tobacco: Never Assessed Comments Unknown Sex and Gender Information Value Date Recorded Sex Assigned at Not on file Legal Sex Female 11:00 AM EDT Gender Identity Not on file Sexual Orientation Not on file documented as of this encounter Plan of Treatment Not on file documented as of this encounter Visit Diagnoses Not on filedocumented in this encounter Care Teams Cold Molding Press Operator Relationship Specialty Start Date End Date Carolynn Claudio MD [address] [place] [phone] PCP - General Internal Medicine 10/20/18 documented as of this encounter
== END 2024-03-04 01:37 ==
LOC: DI 01:18
PROVIDERS: PCP Nurse Practitioner; Visit Provider Orthopaedic Surgery
DX: R10.30 Lower abdominal pain, unspecified (principal)
CPT/HCPCS: 73721

== ENCOUNTER 2024-11-28 02:30 | Outpatient (CLI) | payer OTHER, SELFPAY ==
--- NOTE | 2024-11-28 13:15 | DI.MRI_ITS ---
Exam(s) MR LOWER JOINT LT W EXAM: MR LOWER JOINT LT W CLINICAL HISTORY: left hip injury, sprain lt hip, S73.192D TECHNIQUE: Multiplanar multisequence MRI of the hip was performed. COMPARISON: MR MR LOWER JOINT LT WO from 03/04/2024 FINDINGS: MARROW:There is no evidence of fracture, bone contusion, nor avascular necrosis. There are no significant osseous lesions.There is no significant osseous excrescence at the femoral head-neck junction to suggest the presence of cam- type LUKE. BURSAE: There is no evidence of trochanteric bursitis. There is no evidence of iliopsoas bursitis. HIP JOINT SPACE: No obvious chondral defects.There is no hypertrophy of the ligamentum teres nor intraosseous signal abnormality at the fovea centralis.No evidence of loose intra-articular bodies. No significant synovial thickening. LABRUM: There is a focal tear in the anterior superior labrum. This is best demonstrated on the axial oblique sequences. TENDONS: No evidence of tendinitis nor tendon tears.. No myositis signal around the hip nor evidence of muscular atrophy. ISCHIAL TUBEROSITY/HAMSTRING: There is no abnormal intraosseous signal in the ipsilateral ischial tuberosity nor tear of the common hamstrings tendon attachment site at this level. OTHER: No evidence of myositis signal nor atrophy within the muscular groups around the left hip. IMPRESSION: 1. There is a focal labral tear in the anterior-superior labrum demonstrated. 2. No significant synovial thickening and no loose intra-articular bodies demonstrated. 3. No obvious osteoarthritic degenerative changes in the hip joint. No abnormal marrow signal. DATA REPOSITORY:
--- NOTE | 2024-11-28 13:15 | DI.RAD_ITS ---
Exam(s) RF HIP ARTHRO RAD W CT OR MRI EXAM: RF HIP ARTHRO RAD W CT OR MRI CLINICAL HISTORY: sprain lt hip, S73.192D. TECHNIQUE: 2D and realtime digital imaging was performed. CONTRAST MATERIAL: Oral barium Oral water soluble contrast was administered. COMPARISON: No exams were available for comparison FINDINGS: Patient was consented by myself prior to this procedure. Patient was placed in the supine position on the table. Using sterile technique and adequate skin-subcutaneous anesthesia, fluoroscopic guidance was used to advance a 22 gauge spinal needle into the glenohumeral joint using an anterior approach. Intra-articular position was confirmed with 2 cc Omnipaque 300. Thereafter a sterile solution of Omnipaque 300, bupivicaine 0.25 percent, preservative-free saline, and Dotarem was injected (total 11 cc) into the intra- articular compartment. The indwelling spinal needle was removed. Band-Aid applied. The patient tolerated this procedure well and there were no intraprocedural complications. She was transferred to the MRI suite. See that separate MRI dictation. IMPRESSION: Successful pre MRI left hip arthrogram. RADIATION DOSE DELIVERED: anabelle Summers=3.07mGy
[2024-11-28] MEDS: Normal Saline - Diluent 50 ML VIAL IJ (14:30)
[2024-11-28] MEDS: Omnipaque 300 MG/ML 10 ML BTL IJ (14:33)
[2024-11-28] MEDS: Lidocaine 1% Pres-Free 30 ML VIAL 15 ML IJ (14:33)
[2024-11-28] MEDS: Bupivacaine 0.25% Pres-Free 10 ML VIAL IJ (14:35)
[2024-11-28] MEDS: Gadoterate meglumine 20 ML VIAL IVP (14:36)
== END 2024-11-28 02:50 ==
PROVIDERS: PCP Nurse Practitioner; Visit Provider Family Medicine
DX: S73.192D Other sprain of left hip, subsequent encounter (principal); X58.XXXD Exposure to other specified factors, subsequent encounter
CPT/HCPCS: 27093; 73525; 73722; J0665

== ENCOUNTER → 2025-04-04 00:22 | Outpatient (CLI) | payer OTHER, SELFPAY ==
--- NOTE | 2025-04-04 | DI.RAD_ITS ---
Exam(s) RF JOINT INJ. FLUORO GUID RAD EXAM: RF JOINT INJ. FLUORO GUID RAD CLINICAL HISTORY: PAIN LT HIP, M25.552. TECHNIQUE: 2D and realtime digital imaging was performed. CONTRAST MATERIAL: Intra-articular Omnipaque 300-2 cc COMPARISON: Prior relevant studies were reviewed. FINDINGS: This fluoroscopic guided left hip steroid injection was performed at the request of the referring orthopedic office. Patient was consented prior to this procedure. The patient was placed in supine position on the fluoroscopy table. Using sterile technique and adequate skin-subcutaneous anesthesia, fluoroscopic guidance was used to advance a 22 gauge spinal needle into the hip joint using an anterior approach, being careful to avoid the ipsilateral femoral artery. Intra-articular position was confirmed with injection of 2 cc of Omnipaque 300. Thereafter a sterile solution of 40 milligram Depo-Medrol and 3 cc bupivacaine 0.25 percent was injected into the joint space via the indwelling 22 gauge needle. The needle was then removed and a Band-Aid applied. Patient tolerated this procedure well and there were no intraprocedural complications. IMPRESSION: Successful left hip joint fluoroscopic guided steroid injection. RADIATION DOSE DELIVERED: Ka,r=6.70mGy
[2025-04-04] MEDS: Bupivacaine 0.25% Pres-Free 10 ML VIAL 5 ML IJ (09:33)
[2025-04-04] MEDS: methylPREDNISolone ACETATE 40 MG/ML VIAL IJ (09:34)
[2025-04-04] MEDS: Omnipaque 300 MG/ML 10 ML BTL 5 ML IJ (09:34)
[2025-04-04] MEDS: Lidocaine 1% Pres-Free 30 ML VIAL 10 ML IJ (09:35)
== END ==
LOC: DI 00:23
PROVIDERS: PCP Nurse Practitioner; Visit Provider Family Medicine
DX: M25.552 Pain in left hip (principal)
CPT/HCPCS: 20610; 77002; J0665; J1010